=== PATIENT | female | born 1995 ===

== ENCOUNTER 2018-03-07 16:48 | Emergency (ER) | payer BC ==
[2018-03-07 16:53] VITALS: TEMP 98.3
[2018-03-07] MEDS ORDERED: Sodium Chloride 0.9% 1,000 ML IV STA (17:27)
[2018-03-07 18:06] LABS: BASO # 0.1 K/uL (0.0-0.2); BASO % 0.8 % (0.0-2.0); EOS # 0.2 K/uL (0.0-0.7); EOS % 2.7 % (0.0-4.0); HEMOGLOBIN 12.7 g/dL (12.0-16.0); LYMPH # 1.8 K/uL (1.0-4.3); LYMPH % 25.4 % (20.0-40.0); MEAN CELL VOLUME 85.1 fl (81.0-99.0); MEAN CORPUSCULAR HEMOGLOBIN 27.8 pg (27.0-31.0); MEAN CORPUSCULAR HGB CONC 32.7 g/dL (33.0-37.0); MEAN PLATELET VOLUME 9.5 fl (7.2-11.7); MONO # 0.6 K/uL (0.0-0.8); MONO % 8.2 % (0.0-10.0); NEUT # 4.4 K/uL (1.8-7.0); NEUT % 62.9 % (50.0-75.0); RBC 4.56 Mil/uL (3.80-5.20); RED CELL DISTRIBUTION WIDTH 13.3 % (11.5-14.5)
[2018-03-07 18:14] LABS: ALB/GLOB RATIO 1.2 (1.0-2.1); ALBUMIN 4.7 g/dL (3.5-5.0); ALT/SGPT 20 U/L (9-52); AST/SGOT 19 U/L (14-36); BLOOD UREA NITROGEN 9 mg/dl (7-17); CALCIUM 9.6 mg/dL (8.4-10.2); GFR NON-AFRICAN AMERICAN > 60
--- NOTE | 2018-03-07 18:41 | ED PDOC ---
HPI: Abdomen Chief Complaint (Nursing): Abdominal Pain Location Of Pain/Discomfort: Periumbilical Quality Of Discomfort: Sharp Associated Symptoms: Fever, Nausea, Vomiting, Diarrhea, Loss Of Appetite Exacerbating Factors: None Alleviating Factors: None Last Bowel Movement: Today Additional History Per: Patient Additional Complaint(s): 22 y/o female with PMH of IBS who presents to the ED c/o N/V/D with generalized abdominal pain x 5 days. Two episodes of vomiting today. Pt has bloody stools last night and this morning, described as dark stool with strings of dark red blood. Pt states she had a fever yesterday of 101 that broke with tylenol. Associated decreased appetite and mild cough productive of white sputum with nasal congestion, admits to multiple sick contacts at home. LMP 02/28/18. Denies recent antibiotic use, chest pain, dizziness, rash, urinary symptoms, vision changes, hematemesis, sore throat, ear pain, headache, pelvic pain, back pain, vaginal discharge or bleeding. Past Medical History Reviewed: Historical Data, Nursing Documentation, Vital Signs Vital Signs: Last Vital Signs Temp 98.3 F 03/07/18 16:52 Pulse 106 H 03/07/18 16:52 Resp 16 03/07/18 16:52 BP 146/82 03/07/18 16:52 Pulse Ox 99 03/07/18 16:52 - Medical History PMH: Gastritis - Family History Family History: States: No Known Family Hx - Home Medications Home Medications: Ambulatory Orders Medication Instructions Recorded Dicyclomine [Bentyl] 20 mg PO TID PRN #15 tab 03/07/18 Famotidine [Pepcid] 20 mg PO BID #10 tab 03/07/18 Ondansetron ODT [Zofran ODT] 4 mg PO Q8 PRN #10 odt 03/07/18 - Allergies Allergies/Adverse Reactions: Allergies Allergy/AdvReac Type Severity Reaction Status Date / Time No Known Allergies Allergy Verified 03/07/18 16:51 Review of Systems ROS Statement: Except As Marked, All Systems Reviewed And Found Negative Constitutional: Positive for: Fever, Chills Eyes: Negative for: Vision Change ENT: Positive for: Nose Congestion. Negative for: Ear Pain, Mouth Pain, Throat Pain Cardiovascular: Negative for: Chest Pain, Palpitations Respiratory: Positive for: Cough, Sputum. Negative for: Shortness of Breath, Hemoptysis, Wheezing Gastrointestinal: Positive for: Nausea, Vomiting, Abdominal Pain, Diarrhea, Hematochezia. Negative for: Constipation, Melena, Hematemesis, Rectal Pain Genitourinary Female: Negative for: Dysuria, Frequency, Incontinence, Hematuria, Vaginal Discharge, Vaginal Bleeding, Pelvic Pain Musculoskeletal: Negative for: Neck Pain, Back Pain Skin: Negative for: Rash Neurological: Negative for: Weakness, Numbness, Headache, Dizziness Physical Exam - Reviewed Nursing Documentation Reviewed: Yes Vital Signs Reviewed: Yes - Physical Exam Appears: Positive for: Well, Non-toxic, No Acute Distress Head Exam: Positive for: ATRAUMATIC, NORMAL INSPECTION, NORMOCEPHALIC Skin: Positive for: Normal Color, Warm, DRY Eye Exam: Positive for: EOMI, Normal appearance, PERRL ENT: Positive for: Normal ENT Inspection Neck: Positive for: Normal, Painless ROM Cardiovascular/Chest: Positive for: Regular Rate, Rhythm Respiratory: Positive for: Normal Breath Sounds. Negative for: Decreased Breath Sounds, Rales, Rhonchi, Wheezing, Respiratory Distress Pulses-Radial (L): 2+ Pulses-Radial (R): 2+ Gastrointestinal/Abdominal: Positive for: Normal Exam, Bowel Sounds (normoactive), Soft, Tenderness (periumbilical) Back: Positive for: Normal Inspection. Negative for: L CVA Tenderness, R CVA Tenderness Rectal: Positive for: Normal Exam, Rectal Tone Is: (normal), Stool Is Heme: (negative). Negative for: Black Stool, Blood Streaked Stool, Hemorrhoids, Mass, Tenderness Extremity: Positive for: Normal ROM, Capillary Refill (<2s). Negative for: Tenderness Lymphatic: Positive for: Normal Exam. Negative for: Adenopathy Neurologic/Psych: Positive for: Alert, residential building inspector II-XII (intact), Oriented, Gait (steady). Negative for: Motor/Sensory Deficits - Laboratory Results Result Diagrams: 03/07/18 17:40 03/07/18 17:40 - ECG O2 Sat by Pulse Oximetry: 99 Medical Decision Making Medical Decision Making: Initial Plan: * CBC, CMP, Flu * CT Abd/Pelvis * CXR * IVF * Zofran CBC: wnl CMP: wnl Flu: negative Guiac negative brown stool on rectal exam 20:00 On re-eval, pt feeling much better, eating tiesha chips in stretcher. Patient endorsed to Kary Bahtia PA-C. Patient aware of change of care. A&Ox3, vital signs stable. Pending CXR and CT results. Disposition - Clinical Impression Clinical Impression: Abdominal pain - Disposition Referrals: FAMILY PROVIDER,NO [Primary Care Provider] - Disposition: Transfer of Care Disposition Time: 20:00 Condition: IMPROVED Forms: [employer] (Faroese) Patient Signed Over To: Kary Bhatia (pending CT, CXR, dispo)
[2018-03-07 18:42] LABS: SQUAMOUS EPITHIAL 4 /hpf (0-5); URINE BILIRUBIN NEGATIVE (NEGATIVE); URINE BLOOD NEGATIVE (NEGATIVE); URINE CLARITY SLIGHTY-CLOUDY (Clear); URINE COLOR YELLOW (YELLOW); URINE GLUCOSE (UA) NEG (Normal); URINE LEUKOCYTE ESTERASE NEG Leu/uL (Negative); URINE PROTEIN 30 mg/dL (NEGATIVE); URINE UROBILINOGEN 0.2-1.0 mg/dL (0.2-1.0)
[2018-03-07] MEDS ORDERED: Sodium Chloride 0.9% 50 ML IV ONE (19:14)
[2018-03-07] MEDS ORDERED: Iohexol 300 100 ML IJ ONE (19:14)
--- NOTE | 2018-03-07 20:50 | ED PDOC ---
- Laboratory Results Result Diagrams: 03/07/18 17:40 03/07/18 17:40 - ECG O2 Sat by Pulse Oximetry: 100 - Progress ED Course And Treament: Case endorsed to keno writer from [facility] pending CT, re-eval On re-eval, patient tolerating PO USArad CT impression no acute findings Patient educated on findings, discharged with rx Zofran, Pepcid, Bentyl Advised fluids, bland diet Tylenol/Ibuprofen PRN fever Follow up PMD within 2-3 days Return precautions given Disposition - Clinical Impression Clinical Impression: Gastroenteritis - POA Present On Arrival: None - Disposition Referrals: FAMILY PROVIDER,NO [Primary Care Provider] - [facility] [Outside] Disposition: Routine/Home Disposition Time: 20:51 Condition: IMPROVED Prescriptions: Dicyclomine [Bentyl] 20 mg PO TID PRN #15 tab PRN Reason: Pain, Mild (1-3) Famotidine [Pepcid] 20 mg PO BID #10 tab Ondansetron ODT [Zofran ODT] 4 mg PO Q8 PRN #10 odt PRN Reason: Nausea/Vomiting Instructions: Gastroenteritis (ED) Forms: [employer] (Czech), [facility] ED School/Work Excuse
[2018-03-07 21:06] VITALS: O2SAT 100
[2018-03-07 21:28] VITALS: BP 142/56; PULSE 67; RESP 16
--- NOTE | 2018-03-08 08:55 | RAD ---
Date of service: 03/07/2018 HISTORY: Cough COMPARISON: No prior. TECHNIQUE: Chest PA and lateral FINDINGS: LINES AND TUBES: None. LUNG AND PLEURA: The lungs are well inflated and clear. No pleural effusion or pneumothorax. HEART AND MEDIASTINUM: The heart is not enlarged. No aortic atherosclerotic calcification present. The hilar and mediastinal contours are within normal limits. SKELETAL STRUCTURES: The bony structures are within normal limits for the patient's age. VISUALIZED UPPER ABDOMEN: Normal. OTHER FINDINGS: None. IMPRESSION: No active pulmonary disease.
--- NOTE | 2018-03-08 09:37 | CT ---
Date of service: 03/07/2018 PROCEDURE: CT Abdomen and Pelvis with contrast HISTORY: Abdominal pain COMPARISON: None available. TECHNIQUE: CT scan of the abdomen and pelvis was performed after administration of intravenous contrast. Oral contrast was not administered. Coronal and sagittal reformatted images were obtained. Contrast dose: 95 mL Omnipaque 300 Radiation dose: Total exam DLP = 858.53 mGy-cm. This CT exam was performed using one or more of the following dose reduction techniques: Automated exposure control, adjustment of the mA and/or kV according to patient size, and/or use of iterative reconstruction technique. FINDINGS: LOWER THORAX: The visualized lungs are clear. LIVER: Moderate hepatomegaly and fatty liver. No gross lesion or ductal dilatation. GALLBLADDER AND BILE DUCTS: Well distended. No calcified gallstones, wall thickening or pericholecystic fluid. PANCREAS: Normal in size with homogeneous enhancement. No gross lesion or ductal dilatation. SPLEEN: Normal in size and appearance. ADRENALS: The no discrete nodule. KIDNEYS AND URETERS: Normal in size with homogeneous enhancement. No hydronephrosis. No solid mass. VASCULATURE: No aortic aneurysm. BOWEL: The small bowel loops are normal in caliber. There is large amount of stool in the ascending and proximal transverse colon. APPENDIX: Normal appendix. PERITONEUM: No free fluid. No free air. LYMPH NODES: There are mildly enlarged shotty right mesenteric lymph nodes. BLADDER: Well distended and normal in appearance. REPRODUCTIVE: The uterus is normal in size. BONES: No acute fracture. Within normal limits for the patient's age. OTHER FINDINGS: None. IMPRESSION: No acute abdominal or pelvic abnormality. Moderate hepatomegaly and fatty liver. Constipation. No bowel obstruction. Mildly enlarged shotty right mesenteric lymph nodes, which may represent nonspecific mesenteric adenitis. A preliminary report was provided by [employer]. There are additional non acute findings not mentioned in the preliminary report. The study has been tagged to the PA review folder.
== END 2018-03-07 21:27 | disposition home or self-care (01) ==
LOC: SUPCPDRO 16:48 → H.ER 16:48
DX: K52.9 Noninfective gastroenteritis and colitis, unspecified (principal)
CPT/HCPCS: 71046; 74177; 80053; 81003; 81025; 85025; 87086; 87804; 96374; 99284; J2405; J7030; Q9967